=== PATIENT | female | born 1935 | race Caucasian/White ===

== ENCOUNTER 2021-09-08 13:57 | Inpatient (IN) ==
[2021-09-08] MEDS ORDERED: ONDANSETRON 4 MG/2 ML VIAL IV PRN (15:55)
[2021-09-08] MEDS ORDERED: ACETAMINOPHEN 325 MG TABLET PO PRN (15:55)
[2021-09-08 16:36] LABS: Basophils # 0.1 10*3/uL (0.0-0.2); Basophils % 0.8 % (0.0-0.8); Eosinophils # 0.3 10*3/uL (0.0-0.87); Eosinophils % 3.6 % (0.00-10.9); Hematocrit 38.3 VOL% (35.7-47.0); Hemoglobin 11.8 GM/DL (12.0-16.0); Immature Granulocytes % 0.4 %; Immature Granulocytes Absolute 0.03 #; Lymphocytes % 26.4 % (21.3-54.2); Mean Corpuscular HGB Conc 30.8 GM/DL (32-36); Mean Corpuscular Volume 98.2 FL (87-102); Mean Platelet Volume 8.6 FL (9.6-12.0); Monocytes % 8.9 % (1.7-12.7); Neutrophils % 59.9 % (38.7-73.9); Platelet Count 321 T/CUMM (130-400); Red Cell Distribution Width 14.5 % (9.3-17.3); White Blood Count 7.5 T/CUMM (4-12)
[2021-09-08 17:00] LABS: Alanine Aminotransferase 30 U/L (13-56); Albumin 3.2 G/DL (3.4-5.0); Alkaline Phosphatase 133 U/L (45-117); Aspartate Amino Transferase 30 U/L (0-37); Bilirubin,Total < 0.39 MG/DL (0.20-1.00); Blood Urea Nitrogen 24 MG/DL (7-18); Calcium 8.6 MG/DL (8.5-10.1); Carbon Dioxide 28 MMOL/L (21-32); Estimated Glom Filtration Rate 66 ML/MIN; Glucose 83 MG/DL (74-106); Osmolality,Calculated 277.7 MOS/KG (273-304); Potassium 4.3 MMOL/L (3.5-5.1); Sodium 138 MMOL/L (136-145); Total Protein 7.4 G/DL (6.4-8.2)
[2021-09-08] MEDS: ENOXAPARIN 40 MG/0.4 ML SYRINGE SUBCUT SCH (21:41)
[2021-09-09] MEDS: LEVOTHYROXINE 88 MCG TABLET PO SCH (06:30)
[2021-09-09] MEDS: PANTOPRAZOLE 40 MG TABLET PO SCH (10:48)
[2021-09-09 15:30] LABS: High Sensitive Troponin I* 4.1 ng/L (0-54)
[2021-09-10] MEDS: LEVOTHYROXINE 88 MCG TABLET PO SCH (05:01)
[2021-09-10 06:43] LABS: Basophils # 0.1 10*3/uL (0.0-0.2); Eosinophils # 0.3 10*3/uL (0.0-0.87); Eosinophils % 4.7 % (0.00-10.9); Hematocrit 39.4 VOL% (35.7-47.0); Hemoglobin 12.4 GM/DL (12.0-16.0); Immature Granulocytes % 0.4 %; Immature Granulocytes Absolute 0.03 #; Lymphocytes # 1.5 10*3/uL (1.4-4.0); Lymphocytes % 21.8 % (21.3-54.2); Mean Corpuscular HGB Conc 31.5 GM/DL (32-36); Mean Corpuscular Volume 94.9 FL (87-102); Mean Platelet Volume 8.4 FL (9.6-12.0); Monocytes % 9.9 % (1.7-12.7); Neutrophils % 62.2 % (38.7-73.9); Platelet Count 320 T/CUMM (130-400); Red Blood Count 4.15 MC/CUMM (3.8-5.5); Red Cell Distribution Width 14.1 % (9.3-17.3); White Blood Count 6.8 T/CUMM (4-12)
[2021-09-10 07:02] LABS: Risk Ratio 4.8
[2021-09-10 07:07] LABS: Calcium 9.2 MG/DL (8.5-10.1); Osmolality,Calculated 277.5 MOS/KG (273-304)
[2021-09-10 07:16] LABS: High Sensitive Troponin I* 6.4 ng/L (0-54)
[2021-09-10] MEDS ORDERED: LIDOCAINE 2% 5 ML VIAL ONE (09:29)
[2021-09-10] MEDS ORDERED: propofoL 200 MG/20 ML VIAL IV ONE (09:29)
[2021-09-10] MEDS: LACTATED RINGERS 1,000 ML IV SCH (10:08)
[2021-09-10] MEDS: PANTOPRAZOLE 40 MG TABLET PO SCH ×3 (11:33→15:50)
[2021-09-10] MEDS ORDERED: CYCLOBENZAPRINE 10 MG TABLET PO PRN (13:27)
[2021-09-10] MEDS ORDERED: traMADol 50 MG TABLET PO PRN (13:27)
[2021-09-10] MEDS ORDERED: POLYSACCHARIDE IRON COMPLEX PO SCH (13:30)
[2021-09-10] MEDS: DOCUSATE SODIUM 100 MG/10 ML UDCUP PO SCH ×2 (13:40→21:29)
[2021-09-10] MEDS ORDERED: POLYETHYLENE GLYCOL POWDER 17 GM PACK PO ONE (14:00)
[2021-09-10 16:26] LABS: RBC,Urine 1 /HPF (0-4)
[2021-09-10 16:27] LABS: Bilirubin,Urine Negative (Negative); Blood, Urine Negative (Negative); Glucose,Urine (UA) Negative (Negative); Ketones,Urine Negative (Negative); Nitrite,Urine Negative (Negative); Protein,Urine Negative (Negative); Urine Appearance Clear (Clear); Urine Color Yellow (Yellow); Urine Urobilinogen 0.2 eU/dL (<2.0)
[2021-09-10] MEDS: ROSUVASTATIN 10 MG TABLET PO SCH (21:28)
[2021-09-10] MEDS: MULTIVITAMIN (OCUVITE) TABLET PO SCH (21:28)
[2021-09-11] MEDS: LEVOTHYROXINE 100 MCG TABLET PO SCH (06:01)
[2021-09-11 07:35] LABS: Basophils # 0.1 10*3/uL (0.0-0.2); Basophils % 0.9 % (0.0-0.8); Eosinophils # 0.3 10*3/uL (0.0-0.87); Eosinophils % 5.2 % (0.00-10.9); Hematocrit 39.6 VOL% (35.7-47.0); Hemoglobin 12.4 GM/DL (12.0-16.0); Immature Granulocytes % 0.6 %; Immature Granulocytes Absolute 0.04 #; Lymphocytes # 1.5 10*3/uL (1.4-4.0); Lymphocytes % 22.6 % (21.3-54.2); Mean Corpuscular HGB Conc 31.3 GM/DL (32-36); Mean Corpuscular Volume 95.9 FL (87-102); Mean Platelet Volume 8.7 FL (9.6-12.0); Monocytes % 10.5 % (1.7-12.7); Neutrophils % 60.2 % (38.7-73.9); Platelet Count 343 T/CUMM (130-400); Red Blood Count 4.13 MC/CUMM (3.8-5.5); Red Cell Distribution Width 14.4 % (9.3-17.3); White Blood Count 6.6 T/CUMM (4-12)
[2021-09-11 07:57] LABS: Calcium 9.5 MG/DL (8.5-10.1); Osmolality,Calculated 281.3 MOS/KG (273-304)
[2021-09-11] MEDS ORDERED: PREVAGEN PO SCH (09:00)
[2021-09-11] MEDS ORDERED: TUBERCULIN SKIN TEST 0.1 ML SYRINGE INTRADERM ONE (09:43)
[2021-09-11] MEDS: LACTATED RINGERS 1,000 ML IV SCH (11:26)
[2021-09-11] MEDS ORDERED: POLYETHYLENE GLYCOL POWDER 17 GM PACK PO PRN (14:06)
[2021-09-11] MEDS: DOCUSATE SODIUM 100 MG/10 ML UDCUP PO SCH ×2 (16:36→20:37)
[2021-09-11] MEDS: PANTOPRAZOLE 40 MG TABLET PO SCH ×2 (16:36→16:45)
[2021-09-11] MEDS: MULTIVITAMIN (OCUVITE) TABLET PO SCH ×2 (16:37→20:37)
[2021-09-11] MEDS: MAGNESIUM OXIDE 400 MG TABLET PO SCH (16:45)
[2021-09-11] MEDS: CITALOPRAM 20 MG TABLET PO SCH (16:45)
[2021-09-11] MEDS: DORZOLAMIDE/TIMOLOL OPH SOLN 10 ML BOTTLE RIGHT EYE SCH (16:45)
[2021-09-11] MEDS: CHOLECALCIFEROL 1,000 UNIT TABLET PO SCH (16:45)
[2021-09-11] MEDS: ROSUVASTATIN 10 MG TABLET PO SCH (20:37)
[2021-09-11] MEDS: ZALEPLON 5 MG CAPSULE PO PRN (20:37)
[2021-09-12] MEDS: LEVOTHYROXINE 100 MCG TABLET PO SCH (05:20)
[2021-09-12] MEDS: DOCUSATE SODIUM 100 MG/10 ML UDCUP PO SCH ×2 (08:04→20:48)
[2021-09-12] MEDS: PANTOPRAZOLE 40 MG TABLET PO SCH ×2 (08:04→16:22)
[2021-09-12] MEDS: MULTIVITAMIN (OCUVITE) TABLET PO SCH ×2 (08:04→20:48)
[2021-09-12] MEDS: MAGNESIUM OXIDE 400 MG TABLET PO SCH (08:04)
[2021-09-12] MEDS: CHOLECALCIFEROL 1,000 UNIT TABLET PO SCH (08:04)
[2021-09-12] MEDS: prednisoLONE ACETATE 1% OPH SUSP 5 ML BOTTLE BOTH EYES PRN (08:05)
[2021-09-12] MEDS: CITALOPRAM 20 MG TABLET PO SCH (08:05)
[2021-09-12] MEDS: DORZOLAMIDE/TIMOLOL OPH SOLN 10 ML BOTTLE RIGHT EYE SCH (08:08)
[2021-09-12] MEDS: LACTATED RINGERS 1,000 ML IV SCH (11:08)
[2021-09-12] MEDS: ROSUVASTATIN 10 MG TABLET PO SCH (20:48)
[2021-09-12] MEDS: ZALEPLON 5 MG CAPSULE PO PRN (20:48)
[2021-09-13] MEDS: LEVOTHYROXINE 100 MCG TABLET PO SCH (05:29)
[2021-09-13 06:47] LABS: Basophils # 0.1 10*3/uL (0.0-0.2); Basophils % 0.9 % (0.0-0.8); Eosinophils # 0.4 10*3/uL (0.0-0.87); Eosinophils % 5.8 % (0.00-10.9); Hematocrit 39.5 VOL% (35.7-47.0); Hemoglobin 12.3 GM/DL (12.0-16.0); Immature Granulocytes % 0.4 %; Immature Granulocytes Absolute 0.03 #; Lymphocytes # 1.5 10*3/uL (1.4-4.0); Lymphocytes % 21.7 % (21.3-54.2); Mean Corpuscular HGB Conc 31.1 GM/DL (32-36); Mean Corpuscular Volume 95.9 FL (87-102); Mean Platelet Volume 8.9 FL (9.6-12.0); Monocytes % 9.1 % (1.7-12.7); Neutrophils % 62.1 % (38.7-73.9); Platelet Count 348 T/CUMM (130-400); Red Blood Count 4.12 MC/CUMM (3.8-5.5); Red Cell Distribution Width 14.1 % (9.3-17.3); White Blood Count 6.7 T/CUMM (4-12)
[2021-09-13 07:15] LABS: Calcium 9.2 MG/DL (8.5-10.1); Osmolality,Calculated 279.4 MOS/KG (273-304); Potassium 3.9 MMOL/L (3.5-5.1)
[2021-09-13] MEDS: DORZOLAMIDE/TIMOLOL OPH SOLN 10 ML BOTTLE RIGHT EYE SCH (09:00)
[2021-09-13] MEDS ORDERED: LIDOCAINE 2% 5 ML VIAL ONE ×2 (09:26→10:03)
[2021-09-13] MEDS ORDERED: propofoL 200 MG/20 ML VIAL IV ONE (09:26)
[2021-09-13] MEDS ORDERED: fentaNYL 100 MCG/2 ML VIAL ONE (09:27)
[2021-09-13] MEDS ORDERED: ceFAZolin 1,000 MG VIAL ONE (09:59)
[2021-09-13] MEDS: PANTOPRAZOLE 40 MG TABLET PO SCH ×2 (11:23→16:35)
[2021-09-13] MEDS: CITALOPRAM 20 MG TABLET PO SCH (11:23)
[2021-09-13] MEDS: DOCUSATE SODIUM 100 MG/10 ML UDCUP PO SCH ×2 (11:24→20:49)
[2021-09-13] MEDS: MULTIVITAMIN (OCUVITE) TABLET PO SCH ×2 (11:25→20:49)
[2021-09-13] MEDS: LACTATED RINGERS 1,000 ML IV SCH (11:25)
[2021-09-13] MEDS: CHOLECALCIFEROL 1,000 UNIT TABLET PO SCH (11:25)
[2021-09-13] MEDS: MAGNESIUM OXIDE 400 MG TABLET PO SCH (11:25)
[2021-09-13] MEDS: ROSUVASTATIN 10 MG TABLET PO SCH (20:49)
[2021-09-14] MEDS: LEVOTHYROXINE 100 MCG TABLET PO SCH (05:49)
[2021-09-14 06:41] LABS: Basophils # 0.1 10*3/uL (0.0-0.2); Basophils % 0.7 % (0.0-0.8); Eosinophils # 0.4 10*3/uL (0.0-0.87); Eosinophils % 4.2 % (0.00-10.9); Hematocrit 39.7 VOL% (35.7-47.0); Hemoglobin 12.6 GM/DL (12.0-16.0); Immature Granulocytes % 0.6 %; Immature Granulocytes Absolute 0.05 #; Lymphocytes # 2.2 10*3/uL (1.4-4.0); Lymphocytes % 24.7 % (21.3-54.2); Mean Corpuscular HGB Conc 31.7 GM/DL (32-36); Mean Corpuscular Volume 94.5 FL (87-102); Mean Platelet Volume 9.7 FL (9.6-12.0); Monocytes % 9.4 % (1.7-12.7); Neutrophils % 60.4 % (38.7-73.9); Platelet Count 306 T/CUMM (130-400); Red Cell Distribution Width 13.9 % (9.3-17.3)
[2021-09-14] MEDS: DOCUSATE SODIUM 100 MG/10 ML UDCUP PO SCH ×2 (08:38→21:35)
[2021-09-14] MEDS: prednisoLONE ACETATE 1% OPH SUSP 5 ML BOTTLE BOTH EYES PRN (08:38)
[2021-09-14] MEDS: CHOLECALCIFEROL 1,000 UNIT TABLET PO SCH (08:38)
[2021-09-14] MEDS: MULTIVITAMIN (OCUVITE) TABLET PO SCH ×2 (08:38→21:35)
[2021-09-14] MEDS: DORZOLAMIDE/TIMOLOL OPH SOLN 10 ML BOTTLE RIGHT EYE SCH (08:38)
[2021-09-14] MEDS: PANTOPRAZOLE 40 MG TABLET PO SCH ×2 (08:38→16:07)
[2021-09-14] MEDS: MAGNESIUM OXIDE 400 MG TABLET PO SCH (08:38)
[2021-09-14] MEDS: CITALOPRAM 20 MG TABLET PO SCH (08:38)
[2021-09-14] MEDS: LACTATED RINGERS 1,000 ML IV SCH (09:16)
[2021-09-14] MEDS: ROSUVASTATIN 10 MG TABLET PO SCH (21:35)
[2021-09-14] MEDS: ZALEPLON 5 MG CAPSULE PO PRN (21:35)
[2021-09-14] MEDS: ENOXAPARIN 40 MG/0.4 ML SYRINGE SUBCUT SCH (21:35)
[2021-09-15] MEDS: LEVOTHYROXINE 100 MCG TABLET PO SCH (06:03)
[2021-09-15] MEDS: MULTIVITAMIN (OCUVITE) TABLET PO SCH (08:34)
[2021-09-15] MEDS: CITALOPRAM 20 MG TABLET PO SCH (08:34)
[2021-09-15] MEDS: MAGNESIUM OXIDE 400 MG TABLET PO SCH (08:34)
[2021-09-15] MEDS: PANTOPRAZOLE 40 MG TABLET PO SCH (08:35)
[2021-09-15] MEDS: DOCUSATE SODIUM 100 MG/10 ML UDCUP PO SCH (08:35)
[2021-09-15] MEDS: CHOLECALCIFEROL 1,000 UNIT TABLET PO SCH (08:35)
[2021-09-15] MEDS: DORZOLAMIDE/TIMOLOL OPH SOLN 10 ML BOTTLE RIGHT EYE SCH (08:38)
[2021-09-15] MEDS: LACTATED RINGERS 1,000 ML IV SCH (10:34)
[2021-09-15 12:16] VITALS: BP 121/65
== END 2021-09-15 12:40 | DRG 478 ==
LOC: N.3E 14:21 → SUATTDRO 14:21
PROVIDERS: ADMIT Internal Medicine; ATTEND Emergency Medicine